=== PATIENT | male | born 1980 | race Caucasian/White ===

== ENCOUNTER 2016-08-17 18:14 | Emergency (ER) | payer SELFPAY ==
[~2016-08-17] VITALS: Ht 180.3 cm; Wt 86.4 kg
[~2016-08-17 18:14] MED LIST: GABA600T PO; ZITHTAB PO
[2016-08-17 18:15] VITALS: BP 131/82; PULSE 75; RESP 14; TEMP 98.1; O2SAT 97
--- NOTE | 2016-08-17 18:35 | PD ---
HPI Chief Complaint: Medication Refill Request Time Seen by Provider: 18:32 Travel History International Travel<30 days: No Contact w/Intl Traveler<30days: No Traveled to known affect area: No History of Present Illness HPI 36-year-old male presents to the emergency department requesting refill of his Neurontin and Vistaril. Patient states he has a history of chronic neck and low back pain for 10 years. He states that Neurontin is the only thing that has helped his symptoms in the past. Patient also states he has trouble sleeping. He was on Benadryl the past, but then a physician prescribed him Vistaril which he states works well. Patient denies any new complaints. Patient states he does not currently have a primary care physician, but they have 1 month. He denies any other complaints. [facility] Social History Alcohol Use: No Tobacco Use: Yes (pack a day ) Substance Use: No Allergies-Medications (Allergen,Severity, Reaction): Coded Allergies: No Known Allergies (Unverified , 08/17/16) Reported Meds & Prescriptions Reported Meds & Active Scripts Active Gabapentin 600 Mg Tab 600 Mg PO DAILY Zithromax Z-Howard (Azithromycin) 250 Mg Dspk 250 Mg PO DIRECTED 500 MG (2 tabs) day 1, then 1 tab days 2-5. Reported Gabapentin 600 Mg Tab 600 Mg PO DAILY Review of Systems Except as stated in HPI: all other systems reviewed are Neg Physical Exam Narrative GENERAL: Well-developed well-nourished male patient, ambulatory. Afebrile. SKIN: Warm and dry. HEAD: Normocephalic. Atraumatic. EYES: No scleral icterus. No injection or drainage. NECK: Supple, trachea midline. No JVD or lymphadenopathy. CARDIOVASCULAR: Regular rate and rhythm without murmurs, gallops, or rubs. RESPIRATORY: Breath sounds equal bilaterally. No accessory muscle use. Lungs sounds are clear to auscultation. GASTROINTESTINAL: Abdomen soft, non-tender, nondistended. MUSCULOSKELETAL: No cyanosis, or edema. BACK: Nontender without obvious deformity. No CVA tenderness. Data Data Last Documented VS Vital Signs Date Time Temp Pulse Resp B/P Pulse Ox O2 Delivery O2 Flow Rate FiO2 08/17/16 18:15 98.1 75 14 131/82 97 Room Air MDM Medical Decision Making Medical Screen Exam Complete: Yes Emergency Medical Condition: No Differential Diagnosis Medication refill versus chronic back pain versus chronic neck pain versus insomnia Narrative Course 36-year-old male presents to the emergency department requesting medication refill of his Neurontin and Vistaril. He states this is for chronic neck and back pain as well as insomnia. He denies any new complaints today. Vital signs are stable. No emergent condition is identified on today's exam. A medical screening exam was performed: At the time of evaluation the presenting medical condition was determined not to be of an emergent nature. The patient was given the option of receiving additional care, but declined. Patient was given options for additional community resources from which to obtain care. The Patient Has Been advised to seek medical attention for their presenting complaint. The patient has been advised to return to the ER at any time if an emergent condition develops. Diagnosis Primary Impression: Encounter for medical screening examination Condition: Stable Tania Trejo Aug 17, 2016 18:35
== END 2016-08-17 18:49 | disposition left against medical advice (07) ==
LOC: NEPB 18:14
DX: M54.2 Cervicalgia (principal); Z76.0 Encounter for issue of repeat prescription; G89.29 Other chronic pain; M54.5 Low back pain; F17.210 Nicotine dependence, cigarettes, uncomplicated
CPT/HCPCS: 99281